=== PATIENT | male | born 1935 | race Caucasian/White ===

== ENCOUNTER 2018-09-09 14:18 | Emergency (ER) | payer OTHER, MEDICARE ==
[2018-09-09 15:27] LABS: ANION GAP 11 (5-13); BLOOD UREA NITROGEN 51 mg/dl (7-20); CALCIUM 10.3 mg/dl (8.4-10.2); CARBON DIOXIDE 24 mmol/L (21-31); CHLORIDE 102 mmol/L (97-110); CREATININE 8.68 mg/dl (0.61-1.24); GLUCOSE 142 mg/dl (70-220); POTASSIUM 4.2 mmol/L (3.5-5.1); SODIUM 137 mmol/L (135-144)
[2018-09-09 17:12] LABS: ADD MAN DIFF? NO
[2018-09-09 17:14] LABS: BASOPHIL # 0.1 10^3/ul (0.0-0.1); BASOPHILS % 0.8 % (0.0-2.0); EOSINOPHILS # 0.2 10^3/ul (0.0-0.5); EOSINOPHILS % 2.8 % (0.0-7.0); HEMATOCRIT 34.5 % (42.0-52.0); HEMOGLOBIN 11.6 g/dl (14.0-18.0); LYMPHOCYTES % 32.1 % (15.0-51.0); MEAN CORPUSCULAR HEMOGLOBIN 33.7 pg (29.0-33.0); MEAN CORPUSCULAR HGB CONC 33.6 g/dl (32.0-37.0); MEAN CORPUSCULAR VOLUME 100.3 fl (82.0-101.0); MEAN PLATELET VOLUME 9.7 fl (7.4-10.4); MONOCYTE # 0.5 10^3/ul (0.3-0.9); MONOCYTES % 8.1 % (0.0-11.0); NEUTROPHIL # 3.4 10^3/ul (1.6-7.5); NEUTROPHILS % 55.9 % (39.0-77.0); PLATELET COUNT 243 10^3/UL (140-415); RED BLOOD COUNT 3.44 10^6/ul (4.70-6.10); RED CELL DISTRIBUTION WIDTH 13.8 % (11.5-14.5)
[2018-09-09 17:14] LABS: WHITE BLOOD COUNT 6.1 10^3/ul (4.8-10.8)
[2018-09-09 17:18] LABS: INR 3.59; PROTIME 35.8 Sec (11.9-14.9); PT RATIO 2.8
[2018-09-09 17:19] LABS: PARTIAL THROMBOPLASTIN TIME 44.2 Sec (23.0-35.0)
== END 2018-09-09 21:07 | disposition short-term general hospital (02) ==
LOC: E/R 14:18
DX: T82.838A Hemorrhage due to vascular prosthetic devices, implants and grafts, initial encounter (principal); Y71.2 Prosthetic and other implants, materials and accessory cardiovascular devices associated with adverse incidents
CPT/HCPCS: 80048; 85025; 85610; 85730; 99285-25